=== PATIENT | female | born 1965 | race Caucasian/White ===

== ENCOUNTER 2016-11-14 07:53 | Day surgery (SDC) | payer OTHER ==
[~2016-11-14] VITALS: Ht 170.2 cm; Wt 62.3 kg
[~2016-11-14 07:53] MED LIST: ASCO500C6 PO; BUPR150T12 PO; CeFAZolin Inj 2 GM in IV Premix 1 EACH IV ONE; LEVO25TA5 PO; Lactated Ringer's 1,000 ML IV ONE; MULT-1018 PO; OXYC1TAB24 PO
[2016-11-14] MEDS ORDERED: Propofol 10,000 mCg/mL 20 mL Inj ONE (07:54)
[2016-11-14] MEDS ORDERED: fentaNYL-PF 50 mCg/mL 2 mL Inj ONE (07:54)
[2016-11-14] MEDS ORDERED: CeFAZolin 2 Gm/50 mL D5W Duplex Bag IV ONE (08:05)
[2016-11-14 08:10] VITALS: BP 122/80; PULSE 73; RESP 16; O2SAT 99
[2016-11-14] MEDS ORDERED: EPHEDrine Sulfate 50 mg/mL Inj IVPUSH PRN (09:55)
[2016-11-14] MEDS ORDERED: MetoCLOpramide 5 mg/mL 2 mL Inj IVPUSH PRN (09:55)
[2016-11-14] MEDS ORDERED: fentaNYL-PF 50 mCg/mL 2 mL Inj IVPUSH PRN (09:55)
[2016-11-14] MEDS ORDERED: Phenylephrine 10,000 mCg/mL Inj IVPUSH PRN (09:55)
[2016-11-14] MEDS ORDERED: Dexamethasone 4 mg/mL Inj IVPUSH PRN (09:55)
[2016-11-14] MEDS ORDERED: Lactated Ringer's 1,000 ML IV SCH (09:55)
[2016-11-14] MEDS ORDERED: Ondansetron 2 mg/mL 2 mL Inj IVPUSH PRN (09:55)
[2016-11-14] MEDS ORDERED: Lactated Ringer's 500 ML IV PRN (09:55)
--- NOTE | 2016-11-14 09:55 | PCM.HPANE ---
Patient Data Date of Service: Nov 14, 2016 (0955) Surgeon Admitting Provider: Attending Provider:Ravinder Rivas DPM Primary Care Physician:Vernon Pettit MD Other Provider:Efren Scott Anesthesia Reason for Visit Left Foot Bursitis Ht/WT & BMI Height (Feet): 5 Height (Inches): 7 Weight (Kilograms): 62.3 Body Mass Index 21.00 Allergies Coded Allergies: hydrocodone (Verified Allergy, Unknown, vomiting, 11/13/16) onabotulinumtoxinA (Verified Allergy, Unknown, skin reaction, 11/13/16) Past Anesthesia History Anesthesia History: Positive for:: Anesthesia Reactions (highly nauseated), Denies:: Abnormal Airway, Difficult Intubation, Fam Anesthesia Reaction, Fam Malignant Hypertherm, Malignant Hyperthermia Diabetes History Hx Diabetes?: No MRSA MRSA: No Medications Hypertension Medication: No Home Meds Incl Beta Nico: No Reported Medications Bupropion ER 150 Mg Tablet.er150 Mg PO DAILY Ref 0 11/13/16 Ascorbic Acid (Vitamin C)500 Mg Capsule.er2,000 Mg PO BID 11/13/16 Multivitamin (Multi Vitamin Daily)1 Each Tablet1 Each PO DAILY 30 Days Ref 0 11/13/16 oxyCODONE-Acetaminophen 5-325 mg 1 Each Tablet1 Tab PO Q6H PRN For Pain Ref 0 11/13/16 Levothyroxine 25 Mcg [id number] Mcg PO DAILY Ref 0 11/13/16 History History of ENT Problems?: No HEENT History: Positive for:: TMJ (wears nightguard) Denies:: Abnormal Airway Cataracts Difficult Intubation Dysphagia Glaucoma Hearing Problem Sinus Problem Denture Type: None Teeth Condition: Within Normal Limits Hx of Heart Problems?: No Cardiovascular History: Denies:: AICD Abdominal Aortic Aneurism Atrial Fibrillation Cardiac Surgery Chest Pain Congestive Heart Failure Coronary Artery Disease Edema Heart Murmur Hypertension Irregular Heartbeat Pacemaker Peripheral Vascular Rheumatic Fever Thrombophlebitis Hx of Respiratory Problem?: No Respiratory History: Denies:: Asthma COPD Emphysema Oxygen Administration Pneumonia Tuberculosis Use of Inhalers / NEBS Hx Neurologic Problems?: No Neurological History: Denies:: Alzheimer's Disease CVA Dizziness Headaches Multiple Sclerosis Parkinson's Disease Seizures TIA Hx of GI Problems?: No Hx of Problems?: Yes Genitourinary History: Positive for:: Kidney Stones (developing kidney stone- no treatment for, not sx) Denies:: Urinary Tract Infection Female Hx: Denies:: Currently (hx: ablation) Problems with Breasts? ("cystic" breast on mammograms, ) Skin History: Denies:: History Skin Disorders? Pressure Ulcers Hx Musculoskeletal Problems?: Yes Musculoskeletal History: Positive for:: Back Injury (ruptured disc neck- hx of injections, q2w massages) Musculoskeletal Trauma (bursa left foot current admission problem) Osteoarthritis Denies:: Degenerative Joint Fibromyalgia Myasthenia Gravis Rheumatoid Arthritis Systemic Lupus Hx of Psycho/Social Problems?: Yes Psycho Social History: Positive for:: Anxiety Hx Depression Hx Surgeries?: Yes (myomectomy, breast cyst drainage) Hx Any Other Health Problems?: Yes Other History: Positive for:: Thyroid Disease Denies:: Cancer History Blood Transfusions: Positive for:: Accept Blood Products? Denies:: Blood Transfusions Hx Diabetes: No Hx Alcohol Use: YesAlcoholic Drinks Per Day: 3-5 drinks weeklyHx Substance Use : NoHave You Smoked inLast 12 mo: No Stop/Bang S-Snoring: Do You Snore Loudly: No T-Tired: feel tired, fatigued: No O-Obsered: Observed not breath: No P-Blood Pressure: treated: No B- Body Mass Index > 35 kg/m2: No A- Age over 50: Yes N- Neck Large Circumference: No G- Gender Male: No NADER Total Score: 1 NADER Risk Assessment: Low Risk, <3 Yes Risk Assessment Category Category 1A: Patient has history of documented sleep apnea, and HAS NOT received any narcotic, sedative or anesthesia administration during this stay. Category 1B: Patient has history of documented sleep apnea, and HAS received any narcotic , sedative or anesthesia administration during this stay Category 2: Patient has SUSPECTED Obstructive Sleep Apnea, and HAS received any narcotic , sedative or anesthesia administration during this stay. Category 3: Patient has SUSPECTED Obstructive Sleep Apnea and HAS NOT received narcotic, sedative or anesthesia administration during this stay. Category 4: Outpatient in Procedural Areas with known sleep apnea or who screen positive for High Risk via the STOP/BANG questionnaire. Exam Exam Vital Signs Vital Signs Date Time Temp Pulse Resp B/P Pulse Ox O2 Delivery O2 Flow Rate FiO2 11/14/16 08:10 37.1 73 16 122/80 99 Room Air General Appearance: Alert, Oriented X3 HEENT/AIRWAY: MP 1 Lungs: Clear to Auscultation Heart: Exam Unremarkable Meds/Labs/Diagnostics Admission Meds Current Medications Lactated Ringer's (Lr) 1,000 ml @ 120 mls/hr Q8H20M ONCE IV Last administered on 11/14/16t 08:00; Start 11/14/16 at 07:05; Stop 11/14/16 at 15:24 Plan Impression Patient chart reviewed, patient interviewed and anesthestic plan with risks, benefits, and alternatives discussed, and informed consent obtained. NPO per Anesth. Guidelines: Yes ASA Physical Status: ASA1 Normal Healthy Anesthetic Plan: MAC Bene/Risks/Altern/Consents: Yes HP Complete Prior to Induction: Yes Ramu Huggins MD Nov 14, 2016 09:55
[2016-11-14] MEDS ORDERED: Bupivacaine 0.5% 50 mL Inj INFILTRATE ONE (10:46)
--- NOTE | 2016-11-14 11:09 | PCM.ANEP1 ---
Post Anesthesia PACU Phase 1 Assessment Vital Signs 130/74, 100%, 76, 16, 36.4 Vital Signs Date Time Temp Pulse Resp B/P Pulse Ox O2 Delivery O2 Flow Rate FiO2 11/14/16 08:10 37.1 73 16 122/80 99 Room Air Anesthetic Administered: GA Level of Alertness: Awake, talking CORNEJO's with Equal Strength: Yes Pain: No Pain Scale Score: 0 Nausea or Vomiting: No CV Function & Hydration Stable: Yes Airway Device: NONE Oxygen Delivery: Room Air Lungs: Clear to Auscultation Dermatome Level: Full Sensation Summary UNEVENTFUL SEDATION PACU Phase 2 Assessment Complications: No Follow up Care: No Patient Instructions Provided: N/A Ramu Huggins MD Nov 14, 2016 11:09
[2016-11-14] MEDS ORDERED: oxyCODONE-Acetamin 5-325 mg Tablet PO PRN (11:10)
[2016-11-14 11:12] VITALS: BP 130/74; PULSE 85; RESP 15; O2SAT 100
--- NOTE | 2016-11-14 11:15 | PCM.PODPO ---
Podiatry Operative Report Date of Service: Nov 14, 2016 (0955) Date of Service Nov 14, 2016 Pre Operative Diagnosis Adventitious bursa sub-fifth metatarsal head left foot Post Operative Diagnosis Same, possible neuroma Procedure Excision of bursal mass sub-fifth metatarsal head left foot Surgeon Surgeon: Ravinder Rivas DPM Assistants: None Indication for Procedure Same Findings Same Details of Procedure Patient was ordered to the operating suite and placed on the table in supine position upon surgical timeout and upon initiation of monitored anesthesia care by the anesthesiologist the soft tissues at the plantar lateral fifth metatarsal head was infiltrated with approximately 6 cc 0.5% Marcaine plain. A well-padded pneumatic ankle tourniquet was applied and the foot prepped and draped in the usual aseptic manner. The foot was exsanguinated utilizing an Esmarch bandage, the cuff inflated and attention directed to the plantar lateral fifth metatarsal head where approximately 2.5 cm slightly curvilinear incision was made at the division between thick and thin skin. This incision was deepened via sharp and blunt dissection., Small superficial bleeders were cauterized. There was noted to be a sizable signs fibrous mass measuring approximately 1 x 2 cm which was from the surrounding soft tissues via blunt dissection. The lesion was excised in toto and inspection of the site post excision failed to reveal any further pathologic appearing tissues. The soft tissue specimen sent to pathology for gross and microscopic exam. The site was copiously irrigated and subcutaneous tissues were reapproximated with 4 -0 Vicryl skin closed with 3-0 Prolene. The tourniquet was released normal perfusion returned promptly slight postoperative bleeding was stayed with direct pressure and an antibiotic ointment Adaptic dressing and mildly compressive bandage applied. The patient left the operating suite in apparently satisfactory condition there were no complications. Grafts, Implants: None Complications There were no periprocedural complications identified. Condition Stable Anesthetic Administered: GA, MAC Drains: None Catheters: None Output, Estimated Blood Loss: 1 Blood Admin during surgery: No Surgical Cast or Splint: Post-op Boot Surgical Specimen Removed: Yes Specimen sent to Pathology: Yes Post Operative Plan Postoperative instructions have been reviewed and written copy dispensed, return appointment made 5 days postoperative. Ravinder Rivas DPM Nov 14, 2016 11:14
[2016-11-14 11:39] VITALS: BP 124/76; PULSE 83; RESP 16; O2SAT 98
--- NOTE | 2016-11-17 19:31 | PATH ---
SURGICAL PATHOLOGY Attending Physician:Ravinder Rivas DPM CASE STATUS: Signed Out PATIENT NAME: KELIN TAN PID: [id number] : 1965 DATE COLLECTED:11/14/2016 22:45 SPECIMEN: Bursa CLINICAL HISTORY: LEFT FOOT BURSITIS 1). LEFT FOOT BURSA FINAL DIAGNOSIS: 1.BURSA, LEFT FOOT, BURSECTOMY: PORTION OF FIBROCONNECTIVE AND FIBROADIPOSE TISSUE WITH PATCHY REGIONS OF CHRONIC INFLAMMATION. ICD10 M71.172 GROSS DESCRIPTION: The specimen is received in one formalin filled container labeled with the patient's name, sublabeled "left-foot bursa" and consists of a light yellow sevilla rough portion of tissue which measures 2.5 x 1.6 x 0.7 CM. The specimen is inked blue, sectioned into multiple pieces and entirely submitted in 2 cassettes. 11/14/2016DC MICRO DESCRIPTION: See diagnosis. ICD-9 CODES: CPT CODES: 1: 26319 Electronically Signed Out Anjali Miramontes MD [facility] [address], [place] [address] Technical component performed at [facility], [address] [place] [address] Ave[address], [place], [address]
== END 2016-11-14 23:59 | disposition home or self-care (01) ==
LOC: SAS 07:53
PROVIDERS: ATTEND Podiatrist
DX: M71.872 Other specified bursopathies, left ankle and foot (principal); R22.32 Localized swelling, mass and lump, left upper limb; F41.8 Other specified anxiety disorders; M19.90 Unspecified osteoarthritis, unspecified site
CPT/HCPCS: 28039; J0690; J3010; J7120